=== PATIENT | male | born 1960 | race Caucasian/White ===

== ENCOUNTER 2016-12-21 10:34 | Emergency (ER) | payer OTHER ==
[~2016-12-21] VITALS: Ht 180.3 cm; Wt 68.7 kg
[~2016-12-21 10:34] MED LIST: DOXY100T PO; Z.0.NO CURRENT MEDS
[2016-12-21 10:39] VITALS: BP 130/83; PULSE 65; RESP 18; TEMP 98.4; O2SAT 95
--- NOTE | 2016-12-21 11:07 | PD ---
HPI Chief Complaint: Laceration/Skin Injury Time Seen by Provider: 11:06 Travel History International Travel<30 days: No Contact w/Intl Traveler<30days: No Traveled to known affect area: No History of Present Illness HPI 56-year-old male presents to the ED for evaluation of laceration of the left ear. Patient states that he was helping his father repair his carport when a piece of sheet metal struck him in the ear, causing a laceration just before presentation. He states the area feels a little numb but is otherwise asymptomatic. He is unsure of the date of his last tetanus immunization. PFS Past Medical History Heart Rhythm Problems: No Cardiac Catheterization: No Cardiovascular Problems: Yes High Cholesterol: No Congestive Heart Failure: No Diabetes: No Diminished Hearing: No Tetanus Vaccination: < 5 Years Influenza Vaccination: Yes ?: Not Past Surgical History Surgical History: No Previous Surgery Coronary Artery Bypass Graft: No Family History Family Myocardial Infarction: Yes (brother with 2 bypass surgeries and heart attacks in his 40s,mom with cv ) Social History Alcohol Use: Yes (QUIT 1 MONTH AGO. 2-3 DAILY IN PAST) Tobacco Use: Yes (quit month ago) Substance Use: Yes (THC 06/04/2013) Allergies-Medications (Allergen,Severity, Reaction): Coded Allergies: Codeine (Verified Allergy, Severe, HIVES, 06/04/13) Reported Meds & Prescriptions Reported Meds & Active Scripts Active Doxycycline Hyclate 100 Mg Tab 100 Mg PO BID TAKE UNTIL GONE Reported No Current Meds (Miscellaneous Medication) Misc Review of Systems Except as stated in HPI: all other systems reviewed are Neg Physical Exam Narrative GENERAL: Well-nourished, well-developed white male in no acute distress. SKIN: Warm and dry. There is a 3 cm laceration across the triangular fossa and superior crease of the antihelix on the anterior aspect of the left pinna. This laceration creates a 1.5 cm deep skin flap in the inferior direction. No visible damage to the cartilage. There is a subcentimeter laceration of the middle aspect of the helical edge. HEAD: Normocephalic. EYES: No scleral icterus. No injection or drainage. ENT: Pearly melendrez tympanic membranes bilaterally. No evidence of rupture. NECK: Supple, trachea midline. No JVD or lymphadenopathy. CARDIOVASCULAR: Regular rate and rhythm without murmurs, gallops, or rubs. RESPIRATORY: Breath sounds equal bilaterally. No accessory muscle use. GASTROINTESTINAL: Abdomen soft, non-tender, nondistended. MUSCULOSKELETAL: No cyanosis, or edema. BACK: Nontender without obvious deformity. No CVA tenderness. Data Data Last Documented VS Vital Signs Date Time Temp Pulse Resp B/P Pulse Ox O2 Delivery O2 Flow Rate FiO2 12/21/16 10:39 98.4 65 18 130/83 95 Room Air Orders Tetanus/Diphtheria Tox Adult (Tetanus/Di (12/21/16 11:15) Lidocaine 1% Inj (50 Ml) (Xylocaine 1% I (12/21/16 11:15) Mandatory Outpatient Referral (12/21/16 11:28) MDM Medical Decision Making Medical Screen Exam Complete: Yes Emergency Medical Condition: Yes Differential Diagnosis Abrasion versus laceration versus need for tetanus immunization versus other Narrative Course 56-year-old male presents to the ED for evaluation of laceration of the left ear. Patient states that he was helping his father repair his carport when a piece of sheet metal struck him in the ear, causing a laceration just before presentation. He states the area feels a little numb but is otherwise asymptomatic. He is unsure of the date of his last tetanus immunization. Vitals reviewed. Physical exam reveals a 3 cm laceration across the triangular fossa and superior crease of the antihelix on the anterior aspect of the left pinna. The laceration creates a 1.5 similar skin flap in the inferior direction. No damage to the cartilage noted. There is a subcentimeter laceration of the middle aspect of the helical edge of the same ear. Patient's tetanus immunization was updated. Laceration repair is performed. Please see my procedure note for details. A mandatory outpatient referral was placed with the plastic surgeon for 24-48 hour follow-up. Bulky pressure dressing was applied. Patient is instructed to leave the dressing in place, follow up as instructed, suture removal per the plastic surgeons recommendations. I discussed the complications of the ear laceration with the patient. He indicated understanding of these instructions and is amenable to plan of care. He stable and discharged home. Procedures Procedure Narrative LACERATION LOCATION: Left pinna LENGTH: Wound #1: 2 cm. Wound #2: 0.5 centimeters NUMBER OF STITCHES/ARTURO: 1: 7 2: 2 REPAIR: The area of the laceration was prepped with Betadine and sterilely draped. The laceration was infiltrated with 1% lidocaine. The wound was copiously irrigated with 300 mL daily and explored without evidence of foreign body, tendon injury or neurovascular injury. The wound was closed using 6-0 nylon. This was a single layer repair. A sterile dressing was applied. The patient was advised to keep the dressing clean and dry. Patient tolerated the procedure well. Diagnosis Primary Impression: Laceration of left ear, external Qualified Code: S01.312A - Laceration of left ear, external, initial encounter Additional Impression: Need for tetanus booster Referrals: Plastic Surgeon Patient Instructions: General Instructions, Laceration (ED) Additional Instructions: Mandatory consul has been placed on your behalf. You can expect a call from the hospital with instructions for follow-up. Follow up in 24 hours for wound evaluation with the plastic surgeon. If this cannot be arranged in time follow-up in the ED in 24 hours. Keep the wound clean, dry and covered. Do not remove the dressing until 24-hour evaluation. Disposition: 01 DISCHARGE HOME Condition: Stable Natalie Flores Dec 21, 2016 11:06
[2016-12-21] MEDS ORDERED: TETANUS/DIPHTHERIA TOXOID ADULT 0.5 ML VIAL IM ONE (11:15)
[2016-12-21] MEDS ORDERED: LIDOCAINE HCL 1% 50 ML VIAL INFIL ONE (11:15)
== END 2016-12-21 12:24 | disposition home or self-care (01) ==
LOC: PHEFT 10:34
DX: S01.312A Laceration without foreign body of left ear, initial encounter (principal); Z23 Encounter for immunization; W45.8XXA Other foreign body or object entering through skin, initial encounter; Y93.H3 Activity, building and construction; Y92.015 Private garage of single-family (private) house as the place of occurrence of the external cause; Y99.2 Volunteer activity
CPT/HCPCS: 12011; 90471; 90714

== ENCOUNTER 2016-12-22 13:20 | Emergency (ER) | payer OTHER ==
[~2016-12-22] VITALS: Ht 180.3 cm; Wt 67.1 kg
[2016-12-22 13:28] VITALS: BP 121/89; PULSE 83; RESP 18; TEMP 97.9; O2SAT 94
--- NOTE | 2016-12-22 13:39 | PD ---
HPI . recheck L ear laceration repair Chief Complaint: Wound/Suture/Staple Re-Check Time Seen by Provider: 13:39 Travel History International Travel<30 days: No Contact w/Intl Traveler<30days: No Traveled to known affect area: No History of Present Illness HPI 56-year-old male who was seen yesterday for a left ear laceration here for recheck. Patient was scheduled for a mandatory plastic surgeon referral, but has not been contacted regarding that yet. He is here for recheck on his wound. He admits to some pain near the laceration site, but denies any other issues. PFSH Past Medical History Heart Rhythm Problems: No Cardiac Catheterization: No Cardiovascular Problems: Yes High Cholesterol: No Congestive Heart Failure: No Diabetes: No Diminished Hearing: No Past Surgical History Coronary Artery Bypass Graft: No Social History Alcohol Use: Yes (QUIT 1 MONTH AGO. 2-3 DAILY IN PAST) Tobacco Use: Yes (quit month ago) Substance Use: Yes (THC 06/04/2013) Allergies-Medications (Allergen,Severity, Reaction): Coded Allergies: Codeine (Verified Allergy, Severe, HIVES, 12/22/16) Reported Meds & Prescriptions Reported Meds & Active Scripts Active Doxycycline Hyclate 100 Mg Tab 100 Mg PO BID TAKE UNTIL GONE Reported No Current Meds (Miscellaneous Medication) Misc Review of Systems General / Constitutional: No: Fever Eyes: No: Visual changes HENT: No: Headaches Cardiovascular: No: Chest Pain or Discomfort Respiratory: No: Shortness of Breath Gastrointestinal: No: Abdominal Pain Genitourinary: No: Dysuria Musculoskeletal: No: Pain Skin: Positive Other (left ear laceration repair wound), No Rash Neurologic: No: Weakness Psychiatric: No: Depression Endocrine: No: Polydipsia Hematologic/Lymphatic: No: Easy Bruising Physical Exam Narrative GENERAL: AAO x 3, no acute distress, Well-nourished, well-developed patient. SKIN: Warm and dry. No visible rashes or bruising. Left ear with sutures in place, no significant ecchymosis or edema. Healing well. Looks great. No evidence of infection. HEAD: Normocephalic and atraumatic. EYES: No scleral icterus. No injection or drainage. ENT: No nasal drainage noted. . Airway patent. NECK: Supple, trachea midline. No JVD. CARDIOVASCULAR: Regular rate and rhythm without murmurs, gallops, or rubs. RESPIRATORY: Breath sounds equal bilaterally. GASTROINTESTINAL: normal visual inspection EXTREMITIES: No cyanosis or edema. BACK: Nontender without obvious deformity. No CVA tenderness. PSYCH: AAO x 3, normal affect. Data Data Last Documented VS Vital Signs Date Time Temp Pulse Resp B/P Pulse Ox O2 Delivery O2 Flow Rate FiO2 12/22/16 13:28 97.9 83 18 121/89 94 MDM Medical Decision Making Medical Screen Exam Complete: Yes Emergency Medical Condition: Yes Medical Record Reviewed: Yes Differential Diagnosis ear laceration, ear abrasion, less likely cellulitis Narrative Course 56-year-old male who was seen yesterday for a left ear laceration here for recheck. Patient was scheduled for a mandatory plastic surgeon referral, but has not been contacted regarding that yet. He is here for recheck on his wound. He admits to some pain near the laceration site, but denies any other issues. Patient seen and examined. Ear laceration looks very good. It is healing well and has no signs of infection. Explained that referral department will contact him for plastics referral. In the meantime he will follow-up here on Tuesday for another wound recheck. Diagnosis Primary Impression: Laceration of left ear, external Qualified Code: S01.312D - Laceration of left ear, external, subsequent encounter Patient Instructions: General Instructions Additional Instructions: Please return to emergency department if your symptoms return or worsen. Follow up with your primary care provider. Take medications as prescribed. Curtice for worsening signs of infection which include increased redness, increased warmth, purulent drainage, increased swelling or streaking. You should hear about the referral to plastic surgery within the next few days. Please return to the emergency department on Tuesday for recheck of this wound. If any signs of infection develop, please return earlier. Med/Other Pt SpecificInfo: No Change to Meds Disposition: DISCHARGE HOME Condition: Stable Alyson Aguillon Dec 22, 2016 13:39
== END 2016-12-22 13:54 | disposition home or self-care (01) ==
LOC: PHEFT 13:20
DX: S01.312D Laceration without foreign body of left ear, subsequent encounter (principal)
CPT/HCPCS: 99281

== ENCOUNTER 2016-12-30 11:03 | Emergency (ER) | payer OTHER ==
[~2016-12-30] VITALS: Ht 180.3 cm; Wt 67.5 kg
[2016-12-30 11:13] VITALS: BP 126/89; PULSE 71; RESP 16; TEMP 97.9; O2SAT 98
--- NOTE | 2016-12-30 11:35 | PD ---
HPI Chief Complaint: Wound/Suture/Staple Re-Check Time Seen by Provider: 11:35 Travel History International Travel<30 days: No Contact w/Intl Traveler<30days: No Traveled to known affect area: No History of Present Illness HPI 56-year-old male presents to the ED for suture removal. Patient was seen on after he sustained a laceration to left ear. He return to the ED for wound recheck on 12/22. He was provided with a mandatory outpatient referral but has not yet heard back from the hospital. He endorses mild occasional pain at the wound site but denies fevers, chills, bleeding, redness, discharge from the wound. PFSH Past Medical History Heart Rhythm Problems: No Cardiac Catheterization: No Cardiovascular Problems: Yes High Cholesterol: No Congestive Heart Failure: No Diabetes: No Diminished Hearing: No Heparin Induced Thrombocytopen: No Hypertension: No Past Surgical History Coronary Artery Bypass Graft: No Family History Family Myocardial Infarction: Yes (brother with 2 bypass surgeries and heart attacks in his 40s,mom with cv ) Social History Alcohol Use: Yes (QUIT 1 MONTH AGO. 2-3 DAILY IN PAST) Tobacco Use: No (quit month ago) Substance Use: Yes (THC 06/04/2013) Allergies-Medications (Allergen,Severity, Reaction): Coded Allergies: Codeine (Verified Allergy, Severe, HIVES, 12/30/16) Reported Meds & Prescriptions Reported Meds & Active Scripts Active Reported No Current Meds (Miscellaneous Medication) [facility] Review of Systems Except as stated in HPI: all other systems reviewed are Neg Physical Exam Narrative GENERAL: Well-nourished, well-developed patient. SKIN: Focused skin assessment warm/dry. There are 2 well-healed incisions on the left pinna. Very mild tenderness at the anterior aspect of the wound but no signs of infection. [address] HEAD: Normocephalic. EYES: No scleral icterus. No injection or drainage. NECK: Supple, trachea midline. No JVD or lymphadenopathy. CARDIOVASCULAR: Regular rate and rhythm without murmurs, gallops, or rubs. RESPIRATORY: Breath sounds equal bilaterally. No accessory muscle use. GASTROINTESTINAL: Abdomen soft, non-tender, nondistended. MUSCULOSKELETAL: No cyanosis, or edema. BACK: Nontender without obvious deformity. No CVA tenderness. Data Data Last Documented VS Vital Signs Date Time Temp Pulse Resp B/P Pulse Ox O2 Delivery O2 Flow Rate FiO2 12/30/16 11:13 97.9 71 16 126/89 98 MDM Medical Decision Making Medical Screen Exam Complete: Yes Emergency Medical Condition: Yes Differential Diagnosis Laceration versus suture removal versus wound infection versus other Narrative Course 56-year-old male presents to the ED for suture removal. Patient was seen on after he sustained a laceration to left ear. He return to the ED for wound recheck on 12/22. He was provided with a mandatory outpatient referral but has not yet heard back from the hospital. He endorses mild occasional pain at the wound site but denies fevers, chills, bleeding, redness, discharge from the wound. Vitals reviewed. Physical exam reveals 2 well-healed incisions on the left pinna. Very mild tenderness at the anterior aspect of the wound but no signs of infection. [address] Sutures were removed without incident. Patient was advised to keep the wound clean and dry, continue to monitor for sign of infections, follow-up with the primary care provider. He indicated understanding of instructions. He is agreeable to plan of care. He is stable and discharged home. Diagnosis Primary Impression: Visit for suture removal Referrals: Primary Care Physician Patient Instructions: Acute Wound Care (ED), General Instructions Additional Instructions: Keep the wound clean and dry. Follow-up with primary care provider. Return to the ED for any urgent or emergent medical condition. Disposition: 01 DISCHARGE HOME Condition: Stable Natalei Flores Dec 30, 2016 11:35
== END 2016-12-30 11:57 | disposition home or self-care (01) ==
LOC: PHEFT 11:03
DX: S01.312D Laceration without foreign body of left ear, subsequent encounter (principal); X58.XXXD Exposure to other specified factors, subsequent encounter; Z48.02 Encounter for removal of sutures
CPT/HCPCS: 99281